=== PATIENT | female | born 1970 | race Caucasian/White ===

== ENCOUNTER 2017-02-15 22:29 | Emergency (ER) | payer MEDICAID ==
[2017-02-15 22:29] VITALS: BMI 31.2
[2017-02-15 22:48] VITALS: O2SAT 98
[2017-02-15] MEDS ORDERED: Oxycodone/Acetaminophen 5/325 mg Tab PO STA (23:42)
--- NOTE | 2017-02-15 23:46 | C.PDOC ---
History Of Present Illness 46 year old female presents to the ED for evaluation of the left knee pain and Right ankle pain developed few hours ago. Patient sustained mechanical fall, "tripped over pot hole outside and landed on both knees". Pt admits, was able to ambulate after accident with discomfort over left knee and Right ankle. Patient admits to previous history of left knee injury s/p arthroscopic surgery. Patient denies head injury, LOC, headache, dizziness, neck pain, CP, back pain, denies deformities/weakness to B/L UEs or LEs. Ambulate to Ed w/ assistance of cane. - HPI Time Seen by Provider: 02/15/17 23:02 Chief Complaint (Nursing): Trauma History Per: Patient History/Exam Limitations: no limitations Onset/Duration Of Symptoms: Hrs Past Medical History Reviewed: Historical Data, Nursing Documentation, Vital Signs Vital Signs: Last Vital Signs Temp 99.1 F 02/15/17 22:47 Pulse 71 02/15/17 22:47 Resp 19 02/15/17 22:47 BP 155/89 H 02/15/17 22:47 Pulse Ox 98 02/15/17 23:54 - Medical History PMH: Arthritis, Asthma, Back Problems Surgical History: Appendectomy - [facility] Procedures ESOPHAGOGASTRODUODENOSCOPY [EGD] W/CLOSED BIOPSY (11/11/14) Family History: States: No Known Family Hx - Social History Hx Tobacco Use: No Hx Alcohol Use: No Hx Substance Use: No - Immunization History Hx Tetanus Toxoid Vaccination: No Hx Influenza Vaccination: No Hx Pneumococcal Vaccination: No Review Of Systems Constitutional: Negative for: Fever, Chills Gastrointestinal: Negative for: Nausea, Vomiting Musculoskeletal: Positive for: Other (left knee pain). Negative for: Neck Pain Physical Exam - Physical Exam Appears: Well, Non-toxic, No Acute Distress Skin: Normal Color, Warm, Dry, No Ecchymosis Head: Atraumatic, Normacephalic, No Tenderness, No Swelling, No Abrasion Eye(s): bilateral: Normal Inspection Nose: Normal Oral Mucosa: No Drooling Neck: Normal, Normal ROM, No Midline Cervical Tenderness, No Paracervical Tenderness, No Step Off Deformity, Supple Chest: Symmetrical, No Deformity, No Tenderness Extremity: Normal ROM, Tenderness (diffuse left knee and right ankle lateral malleolus tenderness. No palpable deformity, no skin changes.), No Calf Tenderness, No Deformity, No Swelling Neurological/Psych: Oriented x3, Normal Speech, Normal Motor, Normal Sensation, Normal Reflexes ED Course And Treatment O2 Sat by Pulse Oximetry: 98 - Other Rad Left knee X-Ray: Interpreted by Me, Viewed By Me Interpretation: no acute fx or dislocation Right ankle X-Ray: Interpreted by Me, Viewed By Me Interpretation: no acute fx or disloctaion Progress Note: On re-evaluation, pt is afebrile, hemodynamicaly stable. Non- toxic. AMbulatory in ED with stable gait. Head: AT/NC. Neck: (-) midline tenderness. Left knee: Exam c/w knees contusion, no deformity, no neurovascular deficits. Neurologicaly intact. Imaging review and appears without acute abnormalities. Knee immobilizer applied to left knee. Real wrap applied to Right ankle. Pt advised. ref. to F/U with PMD and Ortho in 2-3 days for re-eavl. return if any new changes. Disposition Counseled Patient/Family Regarding: Studies Performed, Diagnosis, Need For Followup, Rx Given - Disposition Referrals: Sly Schuster MD [Staff Provider] - Shahram Ruiz DO [Doctor Osteopathy] - Disposition: HOME/ ROUTINE Disposition Time: 00:10 Condition: STABLE Additional Instructions: Knee immobilizer for 1 week Real wrap to Left ankle RICE-rest, ice, compression, elevation take pain medication as need Follow up with PMD, Ortho in 2-3 days for re-evaluation. Return to ED if any worsening or new changes. Prescriptions: Ibuprofen [Motrin] 600 mg PO Q6 #20 tab Instructions: Knee Sprain (ED), Ankle Sprain (ED) - Clinical Impression Clinical Impression: Knee contusion, Ankle sprain - Scribe Statement The provider has reviewed the documentation as recorded by the Scribe Sosa Logan All medical record entries made by the Scribe were at my direction and personally dictated by me. I have reviewed the chart and agree that the record accurately reflects my personal performance of the history, physical exam, medical decision making, and the department course for this patient. I have also personally directed, reviewed, and agree with the discharge instructions and disposition.
[2017-02-15] MEDS ORDERED: Oxycodone/Acetaminophen 5/325 mg Tab ONE (23:49)
[2017-02-16 01:03] VITALS: BP 151/78; PULSE 67; RESP 20; TEMP 98
--- NOTE | 2017-02-16 10:51 | RAD ---
PROCEDURE: Right ankle dated 02/15/2017. HISTORY: injury COMPARISON: None. FINDINGS: BONES: Current study reveals no evidence of acute displaced fracture nor dislocation. Ankle mortise maintained. Talar dome intact. There is tiny elliptical shaped the bony density and/or calcification within the soft tissues subjacent to the inferior tip of the lateral malleolus which could represent some old posttraumatic mineralization. Mild bilateral soft tissue swelling JOINTS: As above SOFT TISSUES: As above OTHER FINDINGS: None. IMPRESSION: No acute displaced fracture nor dislocation. Mild bilateral soft tissue swelling.
--- NOTE | 2017-02-16 10:52 | RAD ---
PROCEDURE: Left knee 02/15/2017 HISTORY: injury COMPARISON: No prior study available for comparison. TECHNIQUE: Three views left knee performed. FINDINGS: No evidence of acute displaced fracture nor dislocation. The osseous structures appear intact. Joint spaces preserved. Slight spurring medial tibial spine IMPRESSION: No acute fracture seen.
== END 2017-02-16 01:23 | disposition home or self-care (01) ==
LOC: C.ER 22:29
DX: S80.02XA Contusion of left knee, initial encounter (principal); S93.401A Sprain of unspecified ligament of right ankle, initial encounter; W01.0XXA Fall on same level from slipping, tripping and stumbling without subsequent striking against object, initial encounter

== ENCOUNTER 2017-05-30 13:56 | Emergency (ER) | payer MEDICAID ==
[2017-05-30 13:56] VITALS: BMI 31.2
[2017-05-30 16:06] VITALS: BP 126/85; PULSE 58; RESP 20; TEMP 97.5; O2SAT 99
--- NOTE | 2017-05-30 16:07 | RAD ---
PROCEDURE: Left Foot Radiographs. HISTORY: r/o fx COMPARISON: None. FINDINGS: BONES: Normal. No fracture. JOINTS: Mild hallux valgus. No arthritis. SOFT TISSUES: Normal. OTHER FINDINGS: None. IMPRESSION: No acute fracture.
--- NOTE | 2017-05-30 16:32 | C.PDOC ---
History Of Present Illness Patient is a 47 year old female who presents to the ER with a complaint of pain to the bottom of the left foot after walking yesterday for exercise. Patient states this has never happened to her before. Patient is able to ambulate; denies stepping on anything, numbness, or weakness. Time Seen by Provider: 05/30/17 14:17 Chief Complaint (Nursing): Lower Extremity Problem/Injury History Per: Patient History/Exam Limitations: no limitations Onset/Duration Of Symptoms: Hrs Current Symptoms Are (Timing): Still Present Recent travel outside of the [place]: No - Ankle/Foot Description Of Injury: Other (After walking) Past Medical History Reviewed: Historical Data, Nursing Documentation, Vital Signs Vital Signs: Last Vital Signs Temp 97.5 F L 05/30/17 16:04 Pulse 58 L 05/30/17 16:04 Resp 20 05/30/17 16:04 BP 126/85 05/30/17 16:04 Pulse Ox 99 05/30/17 16:38 - Medical History PMH: Arthritis, Asthma, Back Problems Surgical History: Appendectomy - [facility] Procedures ESOPHAGOGASTRODUODENOSCOPY [EGD] W/CLOSED BIOPSY (11/11/14) Family History: States: Unknown Family Hx - Social History Hx Tobacco Use: No Hx Alcohol Use: No Hx Substance Use: No - Immunization History Hx Tetanus Toxoid Vaccination: No Hx Influenza Vaccination: No Hx Pneumococcal Vaccination: No Review Of Systems Musculoskeletal: Positive for: Foot Pain (Left) Neurological: Negative for: Weakness, Numbness Physical Exam - Physical Exam Appears: Non-toxic, No Acute Distress Skin: Normal Color, Warm, Dry Head: Atraumatic, Normacephalic Oral Mucosa: Moist Extremity: Normal ROM, Tenderness (Slightly to plantar aspect between 2nd and 3rd digits of left foot), No Deformity Pulses: Left Dorsalis Pedis: Normal, Right Dorsalis Pedis: Normal Neurological/Psych: Oriented x3, Normal Speech, Normal Cognition ED Course And Treatment O2 Sat by Pulse Oximetry: 99 (Room air) Pulse Ox Interpretation: Normal Disposition - Disposition Referrals: Sho Magana, [Non-Staff] - Disposition: HOME/ ROUTINE Disposition Time: 15:35 Condition: GOOD Additional Instructions: Thank you for letting us take care of you today. Your provider was Dr. Cruz. You were treated for a foot sprain. The emergency medical care you received today was directed at your acute symptoms. If you were prescribed any medication, please fill it and take as directed. It may take several days for your symptoms to resolve. Return to the Emergency Department if your symptoms worsen, do not improve, or if you have any other problems. Please contact your doctor or call one of the physicians/clinics you have been referred to that are listed on the Patient Visit Information form that is included in your discharge packet. Bring any paperwork you were given at discharge with you along with any medications you are taking to your follow up visit. Our treatment cannot replace ongoing medical care by a primary care provider (PCP) outside of the emergency department. Thank you for allowing the [facility] team to be part of your care today. Follow up with your doctor next week. You may need further testing or referral to a french lecturer in the future. Apply ice and elevate the area for the next 2 days. Instructions: Foot Sprain (ED) - Clinical Impression Clinical Impression: Foot sprain - Scribe Statement The provider has reviewed the documentation as recorded by the Ayaanibarchie Sims All medical record entries made by the Cira were at my direction and personally dictated by me. I have reviewed the chart and agree that the record accurately reflects my personal performance of the history, physical exam, medical decision making, and the department course for this patient. I have also personally directed, reviewed, and agree with the discharge instructions and disposition.
== END 2017-05-30 16:04 | disposition home or self-care (01) ==
LOC: C.ER 13:56
DX: S93.602A Unspecified sprain of left foot, initial encounter (principal); X58.XXXA Exposure to other specified factors, initial encounter; Y93.01 Activity, walking, marching and hiking

== ENCOUNTER 2018-02-20 16:37 | Emergency (ER) | payer MEDICAID ==
[2018-02-20 16:47] VITALS: BMI 37.8
[2018-02-20 16:48] VITALS: RESP 18
--- NOTE | 2018-02-20 17:10 | C.PDOC ---
History Of Present Illness 47 y/o F p/w L knee pain x 2 days. States walking in [facility], twisted knee oddly, now with pain and swelling. Denies direct strike or fall. Denies redness or inability to range. Denies fever. Has Orthopedist because has knee problems and has had gel injections in past. Time Seen by Provider: 02/20/18 16:51 Chief Complaint (Nursing): Lower Extremity Problem/Injury Past Medical History Vital Signs: Last Vital Signs Temp 97.7 F 02/20/18 16:47 Pulse 78 02/20/18 16:47 Resp 18 02/20/18 16:47 BP 127/80 02/20/18 16:47 Pulse Ox 98 02/20/18 17:10 - Medical History PMH: Arthritis, Asthma, Back Problems Denies: Chronic Kidney Disease Surgical History: Appendectomy - [facility] Procedures ESOPHAGOGASTRODUODENOSCOPY [EGD] W/CLOSED BIOPSY (11/11/14) Family History: States: Unknown Family Hx - Social History Hx Tobacco Use: No Hx Alcohol Use: Yes Hx Substance Use: No - Immunization History Hx Tetanus Toxoid Vaccination: No Hx Influenza Vaccination: No Hx Pneumococcal Vaccination: No Review Of Systems Except As Marked, All Systems Reviewed And Found Negative. Constitutional: Negative for: Fever Respiratory: Negative for: Shortness of Breath Physical Exam - Physical Exam Additional Physical Exam Comments: Gen: NAD Head: AT Eyes: No scleral icterus CV: Regular rate Resp: No tachypnea Extremities: L knee tenderness. FROM intact. Neuro: Moves all extremities. Sensation to light touch intact. ED Course And Treatment O2 Sat by Pulse Oximetry: 98 Medical Decision Making Medical Decision Making: Toradol for pain, advised anti inflammatories. XR negative for fracture. Patient has knee brace. F/u with private Orthopedist. Disposition - Disposition Disposition: HOME/ ROUTINE Disposition Time: 18:20 Condition: STABLE Prescriptions: Ibuprofen [Motrin] 600 mg PO Q6 #25 tab Instructions: Knee Pain Forms: [employer] (Malay) - Clinical Impression Clinical Impression: Knee pain
[2018-02-20 18:33] VITALS: BP 130/79; PULSE 64; TEMP 98.1; O2SAT 97
--- NOTE | 2018-02-21 09:25 | RAD ---
PROCEDURE: Left Knee Radiographs. HISTORY: Pain. COMPARISON: None. FINDINGS: BONES: Bone alignment and mineralization are normal. There is no acute displaced fracture or bone destruction. JOINTS: There is mild degenerative osteoarthrosis in the medial compartment with reduced joint space and marginal spurring. JOINT EFFUSION: There is a small suprapatellar joint effusion. OTHER FINDINGS: None. IMPRESSION: Mild degenerative osteoarthrosis in the medial compartment and small suprapatellar joint effusion.
== END 2018-02-20 18:33 | disposition home or self-care (01) ==
LOC: C.ER 16:37
DX: M25.562 Pain in left knee (principal)
CPT/HCPCS: 73562; 96372; 99284; J1885